=== PATIENT | female | born 1990 | race Caucasian/White ===

== ENCOUNTER → 2021-02-11 10:19 | Outpatient (BNVA) | payer SELFPAY | PROVIDERS: PCP Pediatrics | DX: Z02.1 Encounter for pre-employment examination (principal) ==

== ENCOUNTER → 2023-07-09 13:57 | Outpatient (BNVA) | payer OTHER, SELFPAY | PROVIDERS: PCP Internal Medicine Sports Medicine; Visit Provider Physician Assistant Medical | DX: Z13.89 Encounter for screening for other disorder (principal) | CPT/HCPCS: 99202 ==

== ENCOUNTER 2024-03-08 02:47 | Emergency (ER) | payer OTHER, SELFPAY ==
--- NOTE | 2024-03-08 | ECG_ITS ---
Test Reason : ABD PAIN Blood Pressure : / mmHG Vent. Rate : 122 BPM Atrial Rate : 122 BPM P-R Int : 158 ms QRS Dur : 076 ms QT Int : 308 ms P-R-T Axes : 068 046 047 degrees QTc Int : 438 ms Sinus tachycardia Abnormal ECG When compared with ECG of 03-NOV-2017 21:19, Heart rate has increased Referred By: Generic ED Physician Electronically Signed By:CULLEN BHATT
--- NOTE | ~2024-03-08 | XR_ITS ---
EXAMINATION: XR ABDOMEN KUB CLINICAL INDICATION: Constipated COMPARISON: None available. TECHNIQUE: AP view of the abdomen. FINDINGS: Bowel gas pattern is nonobstructive. Mild stool noted in the left abdomen. Limited assessment for free air with supine positioning. No suspicious calcifications are seen. Included lung bases are well aerated. No acute osseous findings are seen. XR/XR KUB IMPRESSION: Nonobstructive bowel gas pattern. Mild stool in the left abdomen. Electronically signed by: Hardy Chisholm MD 03/08/2024 06:23 AM EDT
--- NOTE | ~2024-03-08 | US_ITS ---
EXAMINATION: US ABDOMEN LIMITED CLINICAL INFORMATION: Right upper quadrant pain, question cholecystitis. COMPARISON: None available. TECHNIQUE: Real-time imaging of the right upper quadrant abdominal viscera. FINDINGS: PANCREAS: The visualized proximal portion of the pancreas is unremarkable. The distal portion is obscured secondary to overlying bowel gas. LIVER: The liver is normal in size. The liver contour is normal. Parenchymal echogenicity is normal. No focal hepatic lesion. There is no intrahepatic biliary duct dilatation seen. GALLBLADDER: Gallbladder is physiologically distended. No gallstones are seen. Gallbladder wall thickness is within normal limits at 0.3 cm. A 0.4 cm gallbladder polyp is noted. Mild right upper quadrant tenderness reported during the exam. COMMON BILE DUCT: Normal in caliber measuring 0.2 cm in diameter. RIGHT KIDNEY: No hydronephrosis. No renal calculi or focal parenchymal lesions. The kidney measures 12.3 cm in maximum dimension. FREE FLUID: None. US/US abdomen limited IMPRESSION: 1. No gallstones or wall thickening identified. Mild right upper quadrant tenderness reported during the exam, of uncertain clinical significance in this setting. 2. Gallbladder polyp measuring 0.4 cm, likely benign. This may be reassessed with six-month follow-up ultrasound. Electronically signed by: Hardy Chisholm MD 03/08/2024 06:27 AM [facility]
[2024-03-08 03:01] VITALS: BP 132/76; PULSE 138; RESP 18; TEMP 37.5; O2SAT 100; BMI 26.2
--- NOTE | 2024-03-08 03:20 | ED_ITS ---
HPI - Abdominal Pain General Chief Complaint: Abdominal Pain Stated Complaint: Abd Pain Etc Time Seen by Provider: 03/08/24 03:19 Source: patient Mode of arrival: ambulatory Limitations: no limitations History of Present Illness ED Provider: brianna COTTON narrative: Patient with off and on upper abdominal pain had ultrasound done about 6 months ago which showed sludge in the gallbladder also does have history of constipation comes here as she woke up from sleep with upper abdominal pain with nausea last bowel movement was few days ago no vomiting no fever no chills patient was having dull pain for last 24 hours which got worse in the night patient was shaky when she woke up no fever Related Data Allergies Allergy/AdvReac Type Severity Reaction Status Date / Time No Known Allergies Allergy Unverified 03/08/24 03:04 [No Known Allergies*] Review of Systems Review of Systems Yes all other systems are reviewed and are negative PMFSH Past Medical History Attestation statement: The following information was validated with the patient. Social History Social History Smoked in Last 30 Days: No Use of substances other than those prescribed or required for medical reasons: No Advance Directives: No Advance Directives Information Provided: Yes Do you have a plan to hurt others: No Plan Patient : No Physical Exam ED Vital Signs: Vital Signs - 24 hr 03/08/24 03:01 Temperature 99.5 F Pulse Rate 138 H Respiratory Rate 18 Blood Pressure 132/76 Pulse Oximetry 100 Oxygen Delivery Method Room Air BMI result Body Mass Index 26.2 Appearance: Alert. Oriented X3. No acute distress. Eyes: PERRLA, No Nystagmus no pallor ENT: Pharynx normal. Oral Mucosa moist Neck: Normal inspection. Neck supple. CVS: Normal heart rate and rhythm. Pulses normal. Respiratory: No respiratory distress. Equal air entry bilateral, no wheezing/rales/rhonchi Abdomen: Soft and tenderness in right upper quadrant no rebound or guarding Bowel sounds are present, no mass palpable, no CVA tenderness Skin: Skin warm and dry. Normal skin color. Normal skin turgor. Extremities: No lower extremity edema. No calf tenderness Neuro: Oriented X 3. No motor deficit. Medical Decision Making Medical Decision Making [facility] Narrative: Patient has small polyp in gallbladder without any cholecystitis finding of gallstones does have constipation labs are stable patient advised to follow with hospitality coordinator Differential Diagnosis Differential Diagnoses: The differential diagnosis associated with the presentation includes Biliary colic/UTI/gallstones/constipation Lab Data MDM Lab Attestation statement: I reviewed the patient's lab results. 03/08/24 03:24 03/08/24 03:24 Labs: Lab Results 03/08/24 03/08/24 Range/Units 03:24 04:48 WBC 7.3 (4.8-10.8) X10*3/uL RBC 4.67 (4.20-5.50) X10*6/uL Hgb 14.9 (12.0-16.0) g/dl Hct 40.3 (37.0-47.0) % MCV 86.3 (80.0-98.0) fL MCH 31.9 (27.0-33.0) pg MCHC 37.0 H (31.0-35.0) g/dl RDW 11.6 (11.0-16.0) % Plt Count 244 (160-400) X10*3/uL MPV 9.1 L (9.4-12.3) fL Absolute Nucleated RBC 0.000 (0.0-0.012) X10*3/uL Nucleated RBC % (auto) 0.0 (0.0-0.2) /100WBC Sodium 139 (135-145) mmol/L Potassium 3.9 (3.3-5.1) mmol/L Chloride 106 (96-108) mmol/L Carbon Dioxide 22 (22-29) mmol/L Anion Gap 15 (12-20) BUN 8 L (9-16) mg/dL Creatinine 0.84 (0.5-1.4) mg/dL Estim Creat Clear Calc 85.9 Estimated GFR > 60 Random Glucose 100 (60-115) mg/dL Calcium 10.1 (8.4-10.2) mg/dL Total Bilirubin 0.8 (0.0-1.0) mg/dL AST 53 H (5-31) U/L ALT 21 (0-31) U/L Alkaline Phosphatase 60 (39-117) U/L Total Protein 7.9 (6.5-8.0) g/dL Albumin 4.8 (3.5-5.0) g/dL Lipase 65 (8-78) U/L Urine Color Dark Yellow Urine Appearance Clear Urine pH 8.0 (5.0-9.0) Ur Specific [place] 1.010 (1.005-1.025) Urine Protein Negative (Neg-Trace) mg/dL Urine Glucose (UA) Negative (Negative) mg/dL Urine Ketones Trace (Negative) mg/dL Urine Blood Negative (Negative) Urine Nitrite Negative (Negative) Ur Leukocyte Esterase Negative (Negative) Independent Interpretation I performed an independent interpretation of an: Ultrasound Radiology Impression Discussion of test interpretation with radiology: I have reviewed the radiologist's reading. Medications Administered Discontinued Medications Generic Name Dose Route Start Last Admin Trade Name Freq PRN Reason Stop Dose Admin Acetaminophen 650 mg 03/08/24 04:19 03/08/24 04:22 Acetaminophen 325 Mg Tablet PO 03/08/24 04:20 650 mg ONCE ONE Administration Sodium Chloride 1,000 mls @ 999 mls/hr 03/08/24 03:32 03/08/24 04:13 Ns IV 03/08/24 04:32 999 mls/hr .Q1H1M ONE Administration Ondansetron HCl 4 mg 03/08/24 03:32 03/08/24 04:14 Ondansetron Hcl 4 Mg/2 Ml Vial IVPUSH 03/08/24 03:33 Not Given ONCE ONE Discharge Plan Discharge Clinical Impression: Biliary colic, Constipation Patient Disposition: Home, Self-Care Instructions: Constipation (ED), Biliary Colic (ED) Additional Instructions: Your small polyp in your gallbladder which causing the pain avoid fried foods Drink plenty of fluids take MiraLax once or twice a day for constipation Follow with surgeon Report to the ER if worsening of the pain Referrals: Ralph Austin MD [Physician] - 2 weeks Print Language: Nauruan
[2024-03-08 03:28] LABS: Hematocrit 40.3 % (37.0-47.0); Hemoglobin 14.9 g/dl (12.0-16.0); Mean Corpuscular Hemoglobin 31.9 pg (27.0-33.0); Mean Corpuscular Volume 86.3 fL (80.0-98.0); Mean Platelet Volume 9.1 fL (9.4-12.3); Platelet Count 244 X10*3/uL (160-400); Red Blood Count 4.67 X10*6/uL (4.20-5.50); Red Cell Distribution Width 11.6 % (11.0-16.0); White Blood Count 7.3 X10*3/uL (4.8-10.8)
[2024-03-08 03:45] LABS: Alanine Aminotransferase 21 U/L (0-31); Albumin Level 4.8 g/dL (3.5-5.0); Alkaline Phosphatase 60 U/L (39-117); Anion Gap 15 (12-20); Aspartate Amino Transferase 53 U/L (5-31); Bilirubin Total 0.8 mg/dL (0.0-1.0); Blood Urea Nitrogen 8 mg/dL (9-16); Calcium 10.1 mg/dL (8.4-10.2); Carbon Dioxide 22 mmol/L (22-29); Chloride 106 mmol/L (96-108); Creatinine Clr Calc Pharmacy 85.9; Estimated Glomerular Filt Rate > 60; Glucose Random 100 mg/dL (60-115); Lipase 65 U/L (8-78); Potassium 3.9 mmol/L (3.3-5.1); Sodium 139 mmol/L (135-145); Total Protein 7.9 g/dL (6.5-8.0)
[2024-03-08] MEDS: 0.9 % Sodium Chloride 1,000 ML 999 ML IV (04:13)
[2024-03-08] MEDS: Acetaminophen 325 MG TABLET 650 MG PO (04:22)
--- OUTSIDE RECORDS SUMMARY | 2024-03-08 04:35 | XMS_ITS | Continuity of Care Document ---
Author Organization [facility] Address [address] [place] [address]- Care Team Providers Care Induction Coordination Engineer Name Role Phone Treasure OLIVO, Charly Sánchez Primary Care Physician [facility] 02[facility]18[facility]23 - 03/20/23 [facility] [address] [place], [place] [address] Allergies, Adverse Reactions, Alerts No Known Allergies Immunizations Given and Recorded Vaccine Date Status Refusal Reason influenza virus vaccine, inactivated 04/03/21 Sunny rded influenza virus vaccine, inactivated 1 04/07/18 Gi jessica influenza virus vaccine, inactivated 04/21/14 Give n SARS-CoV-2 (COVID-19) mRNA BNT-162b2 vac 02/15/21 Recorded SARS-CoV-2 (COVID-19) mRNA BNT-162b2 vac 01/23/21 Recorded hepatitis B adult vaccine 02/29/20 Recorded Varicella Virus Vaccine 2 07/18/19 Recorded Varicella Virus Vaccine 11/08/10 Given Measles/Mumps/Rubella Virus Vaccine 01/16/13 Given Measles/Mumps/Rubella Virus Vaccine 03/01/97 Given Measles/Mumps/Rubella Virus Vaccine 08/28/93 Given tetanus/diphtheria/pertussis, acel(Tdap) 3 11/24/12 Given tetanus/diphtheria/pertussis, acel(Tdap) 01/20/08 Given Human Papillomavirus Vaccine 11/04/07 Given Human Papillomavirus Vaccine 05/04/07 Given Human Papillomavirus Vaccine 01/11/07 Given Meningococcal Conjugate Vaccine 01/11/07 Given tetanus-diphtheria toxoids (Td) 07/08/04 Given Polio Vaccine, Live (oldterm) 4 07/11/98 Given Polio Vaccine, Live (oldterm) 5 11/27/93 Given Polio Vaccine, Live (oldterm) 6 92 Given Polio Vaccine, Live (oldterm) 7 92 Given diphtheria/tetanus/pertussis, acel(DTaP) 07/11/98 Given diphtheria/tetanus/pertussis, acel(DTaP) 11/27/93 Given diphtheria/tetanus/pertussis, acel(DTaP) 02/06/93 Given diphtheria/tetanus/pertussis, acel(DTaP) 92 Given diphtheria/tetanus/pertussis, acel(DTaP) 92 Given Haemophilus B conjugate (HbOC) vaccine 08/28/93 Gi jessica Haemophilus B conjugate (HbOC) vaccine 02/06/93 Gi jessica Haemophilus B conjugate (HbOC) vaccine 92 Gi jessica Haemophilus B conjugate (HbOC) vaccine 92 Gi jessica hepatitis B pediatric vaccine 92 Given hepatitis B pediatric vaccine 92 Given hepatitis B pediatric vaccine 92 Given 1Result Comment: [04/07/2018] [facility] [id number] 2Result Comment: received at [place], [place] 3Admin Note: 07/29/11 VIS Given. 4Admin Note: POLIO (ORAL ) 5Admin Note: POLIO (ORAL ) 6Admin Note: POLIO (ORAL ) 7Admin Note: POLIO (ORAL ) Medications LORazepam 0.5 mg oral tablet 1 tablet = 0.5 mg, By Mouth, Daily, PRN as needed for anxiety, at least 30 minutes prior to flight,# 6 tablet, 0 Refills, Soft Stop, 02/10/22 12:03:00 EDT, Tablet, [facility]/pharmacy #[id number], Partial fill upon patient request if the prescription is for a mick... Start Date: 02/10/22 Status: Ordered Multi Vitamin+ 0 Refills, Maintenance, 02/13/23 10:44:00 EDT, Partial fill upon patient request if the prescription is for a schedule II opioid drug. Start Date: 02/13/23 Status: Ordered Probiotic Formula By Mouth, Daily, 0 Refills, Maintenance, 02/13/23 10:45:00 EDT, Partial fill upon patient request if the prescription is for a schedule II opioid drug. Start Date: 02/13/23 Status: Ordered Problem List Condition Confirmation Course Effective Dates Status H ealth Status Informant Abdominal bloating Confirmed Active Overweight (BMI 25.0-29.9) Confirmed Active Congenital pulmonary stenosis Confirmed Active Fear of flying Confirmed Active LFT elevation Confirmed Active Congenital pulmonary stenosis s/p percutaneous balloon valvuloplasty at age 7 yo Confirmed Stable 12/14/97 Active Social History Social History Type Response Smoking Status Never smoker; Tobacc o user in household: No entered on: 11/24/16 Sex Patient Care team information Care Team Personnel Name: Treasure OLIVO, Charly Sánchez Position: [facility] Physician - Primary Care Member Role: PCP Address: Address: [address] [place] [address] Adult & [place] [address]- Care Team Related Persons Name: NILESH YUN Address: home [address] [place] [address] Name: SAE YUN Address: home [address] [place] [id number]
--- OUTSIDE RECORDS SUMMARY | 2024-03-08 04:35 | XMS_ITS | Continuity of Care Document ---
Author Organization [facility] Address [address] [place] [address]- Care Team Providers Care Insurance Manager Name Role Phone Jerson OLIVO, Lucia Primary Care Physician [facility]): 01/11/21 - 01/18/21 [facility] [address] [place], [place] [address] Attending Physician: Lucia Arthur MD Allergies, Adverse Reactions, Alerts Substance Reaction Severity Status NKA Active Immunizations Given and Recorded Vaccine Date Status Refusal Reason Varicella Virus Vaccine 1 07/18/19 Recorded Varicella Virus Vaccine 11/08/10 Given influenza virus vaccine, inactivated 2 04/07/18 Gi jessica influenza virus vaccine, inactivated 04/21/14 Give n Measles/Mumps/Rubella Virus Vaccine 01/16/13 Given Measles/Mumps/Rubella Virus [...] B pediatric vaccine 92 Given 1Result Comment: received at [place], [place] 2Result Comment: [04/07/2018] [facility] [id number] 3Admin Note: 07/29/11 VIS Given. 4Admin Note: POLIO (ORAL ) 5Admin Note: POLIO (ORAL ) 6Admin Note: POLIO (ORAL ) 7Admin Note: POLIO (ORAL ) Medications Valtrex 1 gm oral tablet 1 tablet = 1 Gm, By Mouth, Daily, PRN rash, for 5 days, Take at first sign of symptoms. Drink plenty of fluids while on this medication., # 5 tablet, 3 Refills, Acute 01/31/21 9:36:00 EDT, 01/11/21 9:36:00 EDT, Tablet, [id number], Partial fill... Start Date: 01/11/21 Stop Date: 01/31/21 Status: Ordered Problem List Condition Effective Dates Status Health Status Inform ant Depression/Anxiety(Confirmed) Active Congenital pulmonary stenosi s s/p percutaneous balloon valvuloplasty at age 7 yo(Confirmed)(Stable) 12/14/97 Active Vital Signs Most recent to oldest [Reference Range]: 1 Height 159 cm (01/11/21 9:05 AM) Weight 62.2 kg (01/11/21 9:05 AM) Oxygen Saturation [94-100 %] 99 % (01/11/21 9:05 AM) Pulse Rate [55-90 bpm] 79 bpm (01/11/21 9:05 AM) Body Mass Index [18.5-24.99] 24.6 (01/11/21 9:05 AM) Blood Pressure [90-138/55-84 mm Hg] 110/ 76mm Hg (01/11/21 9:05 AM) Temperature [96.8-100.4 DegF] 98.0 DegF (01/11/21 9:05 AM) Temperature Route Temporal (01/11/21 9:05 AM) Social History Social History Type Response Smoking Status Never smoker; Tobacc o user in household: No entered on: 11/24/16 Sex
--- OUTSIDE RECORDS SUMMARY | 2024-03-08 04:35 | XMS_ITS | Continuity of Care Document ---
Author Organization [facility] Address [address] [place] [address]- Care Team Providers Care Cigarette Machine Operator Name Role Phone Charly Amanda MD Primary Care Physician [facility] 06[facility]27/22 - 07/27/22 [facility] [address] [place], [place] [address] Attending Physician: Mohan Gonzáles Admitting Physician: AdmtrMohan Referring Physician: Admtr, Ar8 Allergies, Adverse Reactions, Alerts No Known Allergies [...] pediatric vaccine 92 Given 1Result Comment: [04/07/2018] [facility] [id number] 2Result Comment: received at [place], [place] 3Admin Note: 07/29/11 VIS Given. 4Admin Note: POLIO (ORAL ) 5Admin Note: POLIO (ORAL ) 6Admin Note: POLIO (ORAL ) 7Admin Note: POLIO (ORAL ) Medications LORazepam 0.5 mg oral tablet 1 tablet = 0.5 mg, By Mouth, Daily, PRN as needed for anxiety, at least 30 minutes prior to flight,# 6 tablet, 0 Refills, Soft Stop, 02/10/22 12:03:00 EDT, Tablet, [facility]/pharmacy #[id number], Partial fill upon patient request if the prescription is for a mick... Start Date: 02/10/22 Status: Ordered Problem List Condition Confirmation Course Effective Dates Status H ealth Status Informant Congenital pulmonary stenosis Confirmed Active Fear of flying Confirmed Active LFT elevation Confirmed Active Congenital pulmonary stenosis s/p percutaneous balloon valvuloplasty at age 7 yo Confirmed Stable 12/14/97 Active Social History Social History Type Response Smoking Status Never smoker; Tobacc o user in household: No entered on: 5/22/17 Sex Note * Event Display: Laboratory Result Scanned Authored Date: * Event Display: Non BH Lab Results Authored Date: * Event Display: Non BH Lab Results Authored Date: * Event Display: Non BH Cardiovascular Results Authored Date: * Event Display: Non BH Cardiovascular Results Authored Date: Cardiology Consult note * Event Display: Consult Note Cardiology Authored Date: * Event Display: Consult Note Cardiology Authored Date: * Event Display: Consult Note Cardiology Authored Date: Patient Care team information Care Team Personnel Name: Treasure OLIVO, Charly Sánchez Position: S Primary Care Physician Member Role: PCP Address: Address: [address] [place] [address] Adult [place] [address]- Care Team Related Persons Name: NILESH YUN Address: home [address] [place] [address] Name: SAE YUN Address: [address] [place] [address]
--- OUTSIDE RECORDS SUMMARY | 2024-03-08 04:35 | XMS_ITS | Continuity of Care Document ---
Author Organization [facility] Address [address] [place] [address]- Care Team Providers Care Poker Machine Attendant Name Role Phone Charly Amanda MD Primary Care Physician [facility] Date(s): 06/27/22 - 07/27/22 [facility] [address] [place], [place] [address] Allergies, Adverse Reactions, Alerts No [...] 92 Given 1Result Comment: [04/07/2018] [facility] [id number] 2Result Comment: received at [place], [place] 3Admin Note: 07/29/11 VIS Given. 4Admin Note: POLIO (ORAL ) 5Admin Note: POLIO (ORAL ) 6Admin Note: POLIO (ORAL ) 7Admin Note: POLIO (ORAL ) Medications LORazepam 0.5 mg oral tablet 1 tablet = 0.5 mg, By Mouth, Daily, PRN as needed for anxiety, at least 30 minutes prior to flight,# 6 tablet, 0 Refills, Soft Stop, 02/10/22 12:03:00 EDT, Tablet, [facility]/pharmacy #[id number], Partial fill upon patient request if the [...] Care team information Care Team Personnel Name: Charly Amanda MD Position: [facility] Primary Care Physician Member Role: PCP Address: Address: [address] [place] [address] Adult [place] [address]- Care Team Related Persons Name: NILESH YUN Address: home [address] [place] [address] Name: SAE YUN Address: [address] [address]
--- OUTSIDE RECORDS SUMMARY | 2024-03-08 04:35 | XMS_ITS | Continuity of Care Document ---
Author Organization [facility] Address [address] [place] [address]- Care Team Providers Care Specimen Boss Name Role Phone Jerson OLIVO, Lucia Primary Care Physician [facility] Date(s): 12/24/20 - 01/23/21 [facility] [address] [place], [place] [address] Allergies, Adverse Reactions, Alerts Substance Reaction Severity [...] vaccine 92 Given 1Result Comment: received at [place], [place] 2Result Comment: [04/07/2018] [facility][note 2] [id number] 3Admin Note: 07/29/11 VIS Given. 4Admin Note: [...] 9:36:00 EDT, 01/11/21 9:36:00 EDT, Tablet, [id number], [facility] fill... Start Date: 01/11/21 Stop Date: 01/31/21 Status: Ordered Problem List Condition Effective Dates Status Health Status Inform ant Depression/Anxiety(Confirmed) Active Congenital pulmonary stenosi s s/p percutaneous balloon valvuloplasty at age 7 yo(Confirmed)(Stable) 12/14/97 Active Social History Social History Type Response Smoking Status Never smoker; Tobacc o user in household: No entered on: 11/24/16 Sex
--- OUTSIDE RECORDS SUMMARY | 2024-03-08 04:35 | XMS_ITS | Continuity of Care Document ---
Author Organization [facility] Address [address] [place] [address]- Care Team Providers Care Cook Pressure Name Role Phone Lucia Arthur MD Primary Care Physician Encounter [facility] Date(s): 07/10/20 - 07/17/20 [facility] [address] [place], [place] [address] Attending Physician: Lucia Arthur MD Allergies, Adverse [...] vaccine 92 Given 1Result Comment: received at [place], [place] 2Result Comment: [04/07/2018] [facility] [id number] 3Admin Note: 07/29/11 VIS Given. 4Admin Note: POLIO (ORAL ) 5Admin Note: POLIO (ORAL ) 6Admin Note: POLIO (ORAL ) 7Admin Note: POLIO (ORAL ) Problem List Condition Effective Dates Status Health Status Inform ant Congenital pulmonary stenosi s s/p percutaneous balloon valvuloplasty at age 7 yo(Confirmed)(Stable) 12/14/97 Active Social History Social History Type Response Smoking Status Never smoker; Tobacc o user in household: No entered on: 11/24/16 Sex
--- OUTSIDE RECORDS SUMMARY | 2024-03-08 04:35 | XMS_ITS | Continuity of Care Document ---
Author Organization [facility] Address [address] [place] [address]- Care Team Providers Care Assistant Chief Of Police Name Role Phone Treasure OLIVO, Charly Sánchez Primary Care Physician [phone] Encounter [facility] [id number] Date(s): 06/27/22 - 07/04/22 [facility] [address] [place], [place] [address] Encounter Diagnosis Unspecified acute conjunctivitis, right eye(Discharge Diagnosis) - 06/27/22 Attending Physician: Mitch OLIVO, [facility] Allergies, Adverse Reactions, Alerts No Known Allergies [...] pediatric vaccine 92 Given 1Result Comment: [04/07/2018] [facility] [id number] 2Result Comment: received at [place], [place] 3Admin Note: 07/29/11 VIS Given. 4Admin Note: POLIO (ORAL ) 5Admin Note: POLIO (ORAL ) 6Admin Note: POLIO (ORAL ) 7Admin Note: POLIO (ORAL ) Medications erythromycin 0.5% ophthalmic ointment 0.5 inches, Eye, Right, 4 times a day, for 10 days, avoid contacts and eye makeup during treatment,# 3.5 Gm, 0 Refills, Acute 07/07/22 11:31:00 EST, 06/27/22 11:31:00 EST, Ophth Ointment, [facility]/pharmacy #[id number], Partial fill upon patient request if the p... Start Date: 06/27/22 Stop Date: 07/07/22 Status: Ordered LORazepam 0.5 mg oral tablet 1 tablet = 0.5 mg, By Mouth, Daily, PRN as needed for anxiety, at least 30 minutes prior to flight,# 6 tablet, 0 Refills, Soft Stop, 02/10/22 12:03:00 EDT, Tablet, [id number], Partial fill upon patient request if the prescription is for a mick... Start Date: 02/10/22 Status: Ordered Problem List Condition Confirmation Course Effective Dates Status H ealth Status Informant Congenital pulmonary stenosis Confirmed Active Fear of flying Confirmed Active LFT elevation Confirmed Active Congenital pulmonary stenosis s/p percutaneous balloon valvuloplasty at age 7 yo Confirmed Stable 12/14/97 Active Diagnosis Diagnosis Type Effective Dates Health Status Clinical Service Informant Unspecified acute conjunctivitis, right eye Discharge Diagnosis 06/27/22 Social History Social History Type Response Smoking Status Never smoker; Tobacc o user in household: No entered on: 11/24/16 Sex Patient Care team information Care Team Personnel Name: Charly Amanda MD Position: S Primary Care Physician Member Role: PCP Address: Address: [address] [place] [address] Adult & [place] [address]- Care Team Related Persons Name: NILESH YUN Address: home [address] [place] [id number] Name: SAE YUN Address[address] [address]
--- OUTSIDE RECORDS SUMMARY | 2024-03-08 04:35 | XMS_ITS | Continuity of Care Document ---
Author Organization [facility] Address [address] [place] [address]- Care Team Providers Care Shoe Salesperson Name Role Phone Charly Amanda MD Primary Care Physician [facility] - 02/20/23 [facility] [address] [place], [place] [address] Encounter Diagnosis Congenital pulmonary stenosis(Discharge Diagnosis) - 02/13/23 LFT elevation(Discharge Diagnosis) - 02/13/23 Overweight (BMI 25.0-29.9)(Discharge Diagnosis) - 02/13/23 Abdominal bloating(Discharge Diagnosis) - 02/13/23 Attending Physician: Charly Amanda MD Allergies, Adverse Reactions, Alerts No Known Allergies [...] pediatric vaccine 92 Given 1Result Comment: [04/07/2018] [facility] [id number] 2Result Comment: received at [place], [place] 3Admin Note: 07/29/11 VIS Given. 4Admin Note: POLIO (ORAL ) 5Admin Note: POLIO (ORAL ) 6Admin Note: POLIO (ORAL ) 7Admin Note: POLIO (ORAL ) Medications LORazepam 0.5 mg oral tablet 1 tablet = 0.5 mg, By Mouth, Daily, PRN as needed for anxiety, at least 30 minutes prior to flight,# 6 tablet, 0 Refills, Soft Stop, 02/10/22 12:03:00 EDT, Tablet, [id number], Partial fill upon patient request if the [...] Effective Dates Health Status Clinical Service Informant Congenital pulmonary stenosis Discharge Diagnosis 02/13/23 LFT elevation Discharge Diagnosis 02/13/23 Overweight (BMI 25.0-29.9) Discharge Diagnosis 02/13/23 Abdominal bloating Discharge Diagnosis 02/13/23 Vital Signs Most recent to oldest [Reference Range]: 1 Height 158.5 cm (02/13/23 10:40 AM) Weight 66.8 kg (02/13/23 10:40 AM) Oxygen Saturation [94-100 %] 97 % (02/13/23 10:40 AM) Pulse Rate [55-90 bpm] 94 bpm *H* (02/13/23 10:40 AM) Body Mass Index [18.5-24.99 kg/m2] 26.59 kg/m2 *H* (02/13/23 10:40 AM) Blood Pressure [90-138/55-84 mm Hg] 104/ 73mm Hg (02/13/23 10:40 AM) Temperature [96.8-100.4 DegF] 97.3 DegF (02/13/23 10:40 AM) Mode of Delivery (Oxygen) Room air (02/13/23 10:40 AM) Blood pressure sites Arm, right (02/13/23 10:40 AM) Temperature Route Oral (02/13/23 10:40 AM) Weight Obtained Via Standing scale (02/13/23 10:40 AM) Social History Social History Type Response Smoking Status Never smoker; Tobacc o user in household: No entered on: 11/24/16 Sex Note * Shelly Ivy: PERFORM, SIGN, VERIFY Event Display: Patient Education/Instruction Authored Date: [id number] [facility] Clinical Summary Name MYRIAM ALVARENGA Age 32 Years 1990 PCP Treasure OLIVO, Charly Sánchez PCP [facility]# [phone] Visit Date 02/13/2023 10:37:00 Additional Instructions: Scheduled Appointments?? Future Appointments ?No Future Appointments Scheduled Follow-Up Instructions ?? Diagnosis Encounter for general adult medical examination without abnormal findings Medications: Please continue your medications until treatment is completed or stopped by your provider. Discuss any questions related to medications with your provider. Medications to Continue with No Changes These medications were not printed or sent to your pharmacy bifidobacterium-lactobacillus (Probiotic Formula) Oral Daily. Next Dose: Lorazepam (LORazepam 0.5 mg oral tablet) 1 tab(s) Oral Daily as needed as needed for anxiety. at least 30 minutes prior to flight. Refills: 0. Next Dose: Multivitamin (Multi Vitamin+) Next Dose: Allergy Info:?? NKA Medications Given This Visit Future Orders ?No future orders Vital Signs Height 158.5 cm Weight 66.8 kg BMI 26.59 kg/m2 Blood Pressure 104 mm Hg/73 mm Hg Temperature 97.3 DegF Pulse Rate 94 bpm Respiratory Rate 02 Sat Mode of Delivery 97 %/Room air You can now view a summary of your hospital visit from the comfort of your home through a free online portal called [email or web address]. [email or web address] is a website that allows you to securely view your medical information including discharge summary, medications and follow-up visits. ??You can alsosend a secure electronic message to your doctor???s office to request appointments, renew medications or just ask a question. You can enroll at [email or web address] or register during your next office visit. Disclaimer:?? The information provided is of a general nature and is intended to be used in conjunction with the recommendations and advice of your health care practitioner. ??Every effort has been made to ensure that the information provided is accurate and complete at the time it is provided to you however, as your needs change, or, as new ??information becomes available, different or additional instructions may be required. If you have questions, please consult with your primary care provider or pharmacist, as appropriate. ??This information is not intended to serve as substitution for assessment and evaluation by a qualified health care provider. If you do not have a primary care provider, you may find a [facility] provider by calling [facility] [employer] [facility] at [phone]. For information about the plan of care including goals and instructions for your diagnosis, please see the patient education orders section of this document. Patient Education Materials?? The content of this educational material or handout may have been modified, supplemented, or adapted from its original content and format to support your individualized medical care. 4 Steps for Eating Healthier Changing the way you eat can improve your health. It can lower your cholesterol and blood pressure,and help you stay at a healthy weight. Your diet doesn???t have to be bland and boring to be healthy. Just watch your calories and follow these steps: 1. Eat fewer unhealthy fats ??? Choose more fish and lean meats instead of fatty cuts of meat. ??? Skip butter and lard, and use less margarine. ??? Pass on foods that have palm, coconut, or hydrogenated oils. ??? Eat fewer high-fat dairy foods like cheese, ice cream, and whole milk. ??? Get a heart-healthy cookbook and try some low-fat recipes. 2.??Go light on salt ??? Keep the saltshaker off the table. ??? Limit high-salt ingredients, such as soy sauce, bouillon, and garlic salt. ??? Instead of adding salt when cooking, season your food with herbs and flavorings. Try lemon, garlic, and onion. ??? Limit convenience foods, such as boxed or canned foods and restaurant food. ??? Read food labels and choose lower-sodium options. 3. Limit sugar ??? Pause before you add sugars to pancakes, cereal, coffee, or tea. This includes white and brown table sugar, syrup, honey, and molasses. Cut your usual amount by half. ??? Use non-sugar sweeteners. Stevia, aspartame, and sucralose can satisfy a sweet tooth without adding calories. ??? Swap out sugar-filled soda and other drinks. Buy sugar-free or low-calorie beverages. Remember water is always the best choice. ??? Read labels and choose foods with less added sugar. Keep in mind that dairy foods and foods with fruit will have some natural sugar. ??? Cut the sugar in recipes by 1/3 to 1/2. Boost the flavor with extracts like almond, vanilla, ororange. Or add spices such as cinnamon or nutmeg. 4. Eat??more fiber ??? Eat fresh fruits and vegetables every day. ??? Boost your diet with whole grains. Go for oats, whole-grain rice, and bran. ??? Add beans and lentils to your meals. ??? Drink more water to match your fiber increase. This is to help prevent constipation. ?? 2886-7223 [employer]. [address] [place] [address]. All rights reserved. This information is not intended as a substitute for professional medical care. Always follow your healthcare professional's instructions. Prevention Guidelines,??Women Ages 18 to 39 Screening tests and vaccines are an important part of managing your health. Health counseling is essential, too. Below are guidelines for these, for women ages 18 to 39. Talk with your healthcare provider to make sure you???re up-to-date on what you need. Screening Who needs it How often Alcohol misuse All women in this age group At routine exams Blood pressure All women in this age group Every 2 years if your blood pressure is less than 120/80 mm Hg; yearly if your systolic blood pressure is 120 to 139 mm Hg, or your diastolic blood pressure reading is 80 to 89 mm Hg Breast cancer All women in this age group should talk with their healthcare providers about the need for clinicalbreast exams (CBE)1 Clinical breast exam every 3 years1 Cervical cancer Women ages 21 and older Women between ages 21 and 29 should have a Pap test every 3 years; women between ages 30 and 65 areadvised to have a Pap test plus an HPV test every 5 years Chlamydia Sexually active women ages 24 and younger, and women at increased risk for infection Every 3 years if you're at risk or have symptoms Depression All women in this age group At routine exams Diabetes mellitus, type 2 Adults with no symptoms who are overweight or obese and have 1 or more other risk factors for diabetes At least every 3 years Gonorrhea Sexually active women at increased risk for infection At routine exams Hepatitis C Anyone at increased risk At routine exams HIV All women At routine exams Obesity All women in this age group At routine exams Syphilis Women at increased risk for infection ??? talk with your healthcare provider At routine exams Tuberculosis Women at increased risk for infection ??? talk with your healthcare provider Ask your healthcare provider Vision All women in this age group At least 1 complete exam in your 20s, and 2 in your 30s Vaccine2 Who needs it How often Chickenpox (varicella) All women in this age group who have no record of this infection or vaccine 2 doses; the second dose should be given 4 to 8 weeks after the first dose Hepatitis A Women at increased risk for infection ??? talk with your healthcare provider 2 doses given at least 6 months apart Hepatitis B Women at increased risk for infection ??? talk with your healthcare provider 3 doses over 6 months; second dose should be given 1 month after the first dose; the third dose should be given at least 2 months after the second dose and at least 4 months after the first dose Haemophilus influenzae??Type B (HIB) Women at increased risk for infection ??? talk with your healthcare provider 1 to 3 doses Human papillomavirus (HPV) All women in this age group up to age 26 3 doses; the second dose should be given 1 to 2 months after the first dose and the third dose given 6 months after the first dose Influenza (flu) All women in this age group Once a year Measles, mumps, rubella (MMR) All women in this age group who have no record of these infections or vaccines 1 or 2 doses Meningococcal Women at increased risk for infection ??? talk with your healthcare provider 1 or more doses Pneumococcal conjugate vaccine (PCV13)??and pneumococcal polysaccharide??vaccine??(PPSV23) Women at increased risk for infection ??? talk with your healthcare provider PCV13: 1 dose ages 19 to 65 (protects against 13 types of pneumococcal bacteria) PPSV23: 1 to??2 doses through age 64, or 1 dose at 65 or older (protects against 23 types of pneumococcal bacteria) Tetanus/diphtheria/pertussis (Td/Tdap) booster All women in this age group Td every 10 years, or a one-time dose of Tdap instead of a Td booster after age 18, then Td every 10 years Counseling Who needs it How often BRCA gene mutation testing for breast and ovarian cancer susceptibility Women with increased risk for having gene mutation When your risk is known Breast cancer and chemoprevention Women at high risk for breast cancer When your risk is known Diet and exercise Women who are overweight or obese When diagnosed, and then at routine exams Domestic violence Women at the age in which they are able to have children At routine exams Sexually transmitted infection prevention Women who are sexually active At routine exams Skin cancer Prevention of skin cancer in fair-skinned adults through age 24 At routine exams Use of tobacco and the health effects it can cause All women in this age group Every visit 1According to the ACS, women ages 20 to 39 years should have a clinical breast exam (CBE) as part of their routine health exam every 3 years, and breast self- exams are an option for women starting intheir 20s.??However, the ??USPSTF does not recommend CBE. 2Those who are 18 years of age, who are not up-to-date on their childhood immunizations, should receive all appropriate catch-up vaccines recommended by the CDC. ?? 8043-0303 [employer]. [address] [place] [address], [place] [address]. All rights reserved. This information is not intended as a substitute for professional medical care. Always follow your healthcare professional's instructions. Patient Care team information Care Team Personnel Name: Charly Amanda MD Position: S Physician - Primary Care Member Role: PCP Address: Address: [address] [place] [address] Adult [place] [address]- Care Team Related Persons Name: NILESH YUN Address: home [address] [place] [address] Name: SAE YUN Address: home [address] [place] [address]
--- OUTSIDE RECORDS SUMMARY | 2024-03-08 04:35 | XMS_ITS | Continuity of Care Document ---
Author Organization [facility] Address [address] [place] [address]- Care Team Providers Care Power Tool Repair Technician Name Role Phone Lucia Arthur MD Primary Care Physician [facility]19 - 08/22/[address] [address]- [facility] Attending Physician: Lucia Arthur MD Allergies, Adverse [...] vaccine 92 Given 1Result Comment: received at [place], [place] 2Result Comment: [04/07/2018] [facility] [id number] 3Admin Note: 07/29/11 VIS Given. 4Admin Note: POLIO (ORAL ) 5Admin Note: POLIO (ORAL ) 6Admin Note: POLIO (ORAL ) 7Admin Note: POLIO (ORAL ) Medications Ativan 0.5 mg oral tablet See Instructions, PRN anxiety, Take 1 tablet up to 3 times daily as needed for anxiety. Ok to repeat dose after 20 min if needed., # 30 tablet, 0 Refills, Acute 04/25/20 8:00:00 EDT, 04/25/19 17:33:46 EDT Start Date: 04/25/19 Stop Date: 04/25/20 Status: Ordered copper intrauteral device 0 Refills, Maintenance, 11/24/16 11:37:10 Start Date: 11/24/16 Status: Ordered Problem List Condition Effective Dates Status Health Status Inform ant Congenital pulmonary stenosi s s/p percutaneous balloon valvuloplasty at age 7 yo(Confirmed)(Stable) 12/14/97 Active Social History Social History Type Response Smoking Status Never smoker; Tobacc o user in household: No entered on: 11/24/16 Sex
--- OUTSIDE RECORDS SUMMARY | 2024-03-08 04:35 | XMS_ITS | Continuity of Care Document ---
Author Organization [facility] Address [address] [place] [address]- Care Team Providers Care Treating Plant Supervisor Name Role Phone Lucia Arthur MD Primary Care Physician [facility](s): 02/09/20 - 03/10/20 [facility] [address] [place] [address]- [facility] Allergies, Adverse Reactions, Alerts Substance Reaction Severity [...] vaccine 92 Given 1Result Comment: received at [place], [place] 2Result Comment: [04/07/2018] [facility] [id number] 3Admin Note: 07/29/11 VIS Given. 4Admin Note: [...]
--- OUTSIDE RECORDS SUMMARY | 2024-03-08 04:35 | XMS_ITS | Continuity of Care Document ---
Author Organization [facility] Address [address] [place] [address]- Care Team Providers Care Machine Set Up Name Role Phone Treasure OLIVO, Charly Sánchez Primary Care Physician [phone] [facility](s): 02/12/22 - 03/14/22 [facility] [address] [place], [place] [address] Allergies, Adverse Reactions, Alerts No [...] pediatric vaccine 92 Given 1Result Comment: [04/07/2018] [facility] [id number] 2Result Comment: received at [place], [place] 3Admin Note: 07/29/11 VIS Given. 4Admin Note: POLIO (ORAL ) 5Admin Note: POLIO (ORAL ) 6Admin Note: POLIO (ORAL ) 7Admin Note: POLIO (ORAL ) Medications LORazepam 0.5 mg oral tablet 1 tablet = 0.5 mg, By Mouth, Daily, PRN as needed for anxiety, at least 30 minutes prior to flight,# 6 tablet, 0 Refills, Soft Stop, 02/10/22 12:03:00 EDT, Tablet, [id number], Partial fill upon patient request if the prescription is for a mick... Start Date: 02/10/22 Status: Ordered Problem List Condition Effective Dates Status Health Status Inform ant Congenital pulmonary stenosis(Confirmed) Active Fear of flying(Confirmed) Active LFT elevation(Confirmed) Active Congenital pulmonary stenosi s s/p percutaneous balloon valvuloplasty at age 7 yo(Confirmed)(Stable) 12/14/97 Active Social History Social History Type Response Smoking Status Never smoker; Tobacc o user in household: No entered on: 11/24/16 Sex Care Team Personnel Name: Charly Amanda MD Address: [address] Adult & Pediatric Medicine [place], [place] [address]
--- OUTSIDE RECORDS SUMMARY | 2024-03-08 04:35 | XMS_ITS | Continuity of Care Document ---
Author Organization [facility] Address [address] [place] [address]- Care Team Providers Care Notcher Name Role Phone Charly Amanda MD Primary Care Physician [phone] [facility] 12/15/22 - 01/14/23 [facility] [address] [place], [place] [address] Allergies, Adverse Reactions, Alerts No Known Allergies [...] pediatric vaccine 92 Given 1Result Comment: [04/07/2018] [facility] [id number] 2Result Comment: received at [place], [place] 3Admin Note: 07/29/11 VIS Given. 4Admin [...] Stop, 02/10/22 12:03:00 EDT, Tablet, [facility]/pharmacy #[id number], Partial fill upon patient request if the [...] Team Personnel Name: Charly Amanda MD Position: [facility] Physician - Primary Care Member Role: PCP Address: Address: [address] [place] [address] Adult [place] [address]- Care Team Related Persons Name: NILESH YUN Address: home [address] [place] [address] Name: SAE YUN Address: [address] [address]
--- OUTSIDE RECORDS SUMMARY | 2024-03-08 04:35 | XMS_ITS | Continuity of Care Document ---
Author Organization [facility] Address [address] [place] [address]- Care Team Providers Care Filter Tank Tender Name Role Phone Charly Amanda MD Primary Care Physician [place] [facility] Date(s): 10/16/21 - 02/13/22 [facility] [address] [place], [place] [address] Attending Physician: Charly Amanda MD Allergies, Adverse [...] vaccine 92 Given 1Result Comment: [04/07/2018] [facility] [id number] 2Result Comment: received at [place], [place] 3Admin Note: 07/29/11 VIS Given. 4Admin Note: POLIO (ORAL ) 5Admin Note: POLIO (ORAL ) 6Admin Note: POLIO (ORAL ) 7Admin Note: POLIO (ORAL ) Medications LORazepam 0.5 mg oral tablet 1 tablet = 0.5 mg, By Mouth, Daily, PRN as needed for anxiety, at least 30 minutes prior to flight,# 6 tablet, 0 Refills, Soft Stop, 02/10/22 12:03:00 EDT, Tablet, [facility]/pharmacy #[id number], Partial fill upon patient request if the [...]
--- OUTSIDE RECORDS SUMMARY | 2024-03-08 04:35 | XMS_ITS | Continuity of Care Document ---
Author Organization [facility] Address [address] [place] [address]- Care Team Providers Care Senior Analysis Specialist Name Role Phone Treasure OLIVO, Charly Sánchez Primary Care Physician [facility](s): 02/12/22 - 03/14/22 [facility] [address] [place], [place] [address] Allergies, Adverse Reactions, Alerts [...] pediatric vaccine 92 Given 1Result Comment: [04/07/2018] [facility] [id number] 2Result Comment: received at [place], [place] 3Admin Note: 07/29/11 VIS Given. 4Admin Note: POLIO (ORAL ) 5Admin Note: POLIO (ORAL ) 6Admin Note: POLIO (ORAL ) 7Admin Note: POLIO (ORAL ) Medications LORazepam 0.5 mg oral tablet 1 tablet = 0.5 mg, By Mouth, Daily, PRN as needed for anxiety, at least 30 minutes prior to flight,# 6 tablet, 0 Refills, Soft Stop, 02/10/22 12:03:00 EDT, Tablet, [id number], Partial fill upon patient request if the [...] Team Personnel Name: Charly Amanda MD Address: [address] Adult & Pediatric Medicine [place], [place] [address]
--- OUTSIDE RECORDS SUMMARY | 2024-03-08 04:35 | XMS_ITS | Continuity of Care Document ---
Author Organization [facility] Address [address] [place] [address]- Care Team Providers Care Automotive Teacher Name Role Phone Lucia Arthur MD Primary Care Physician [facility]s): 01/27/20 - 02/26/20 [facility] [address] [place] [address]- [facility] Allergies, Adverse Reactions, Alerts Substance Reaction Severity [...] vaccine 92 Given 1Result Comment: received at [place], [place] 2Result Comment: [04/07/2018] [facility] [id number] 3Admin Note: 07/29/11 VIS Given. 4Admin Note: [...]
--- OUTSIDE RECORDS SUMMARY | 2024-03-08 04:35 | XMS_ITS | Continuity of Care Document ---
Author Organization [facility] Address [address] [place] [address]- Care Team Providers Care Delinquent Tax Collection Assistant Name Role Phone Charly Amanda MD Primary Care Physician [facility]s): 08/01/22 - 08/31/22 [facility] [address] [place], [place] [address] Allergies, Adverse Reactions, [...] pediatric vaccine 92 Given 1Result Comment: [04/07/2018] [facility] [id number] 2Result Comment: received at [place], [place] 3Admin Note: 07/29/11 VIS Given. 4Admin [...] Team Personnel Name: Charly Amanda MD Position: [facility] Primary Care Physician Member Role: PCP Address: Address: [address] [place] [address] Adult & [place] [address]- Care Team Related Persons Name: NILESH YUN Address: home [address] [place] [address] Name: SAE YUN Address: [address] [address]
--- OUTSIDE RECORDS SUMMARY | 2024-03-08 04:36 | XMS_ITS | Continuity of Care Document ---
Author Organization [facility] Address [address] [place] [address]- Care Team Providers Care Instructional Aide Name Role Phone Charly Amanda MD Primary Care Physician [phone] [facility](s): 11/14/21 - 12/14/21 [facility] [address] [place], [place] [address] Allergies, Adverse Reactions, Alerts No Known [...] vaccine 92 Given 1Result Comment: received at [place], [place] 2Result Comment: [04/07/2018] [facility] [id number] 3Admin Note: 07/29/11 VIS Given. 4Admin Note: POLIO (ORAL ) 5Admin Note: POLIO (ORAL ) 6Admin Note: POLIO (ORAL ) 7Admin Note: POLIO (ORAL ) Medications LORazepam 0.5 mg oral tablet 1 tablet = 0.5 mg, By Mouth, Daily, PRN as needed for anxiety, at least 30 minutes prior to flight,# 6 tablet, 0 Refills, Soft Stop, 06/10/21 11:13:00 EST, Tablet, [facility]/pharmacy #[id number], Partial fill upon patient request if the prescription is for a mick... Start Date: 06/10/21 Status: Ordered Problem List Condition Effective Dates Status Health Status Inform ant Depression/Anxiety(Confirmed) Active Congenital pulmonary stenosi s s/p percutaneous balloon valvuloplasty at age 7 yo(Confirmed)(Stable) 12/14/97 Active Social History Social History Type Response Smoking Status Never smoker; Tobacc o user in household: No entered on: 11/24/16 Sex
--- OUTSIDE RECORDS SUMMARY | 2024-03-08 04:36 | XMS_ITS | Continuity of Care Document ---
Author Organization [facility] Address [address] [place] [address]- Care Team Providers Care Steel Checker Name Role Phone Charly Amanda MD Primary Care Physician [phone] [facility]counter [facility] Date(s): 02/10/22 - 02/17/22 [facility] [address] [place], [place] [address] Encounter Diagnosis Congenital pulmonary stenosis(Discharge Diagnosis) - 02/11/22 Fear of flying(Discharge Diagnosis) - 02/11/22 LFT elevation(Discharge Diagnosis) - 02/11/22 History of alcohol abuse(Discharge Diagnosis) - 02/11/22 Overweight (BMI 25.0-29.9)(Discharge Diagnosis) - 02/11/22 Attending Physician: Charly Amanda MD Allergies, Adverse [...] vaccine 92 Given 1Result Comment: [04/07/2018] [facility] [id number] 2Result Comment: received at [place], [place] 3Admin Note: 07/29/11 VIS Given. 4Admin Note: POLIO (ORAL ) 5Admin Note: POLIO (ORAL ) 6Admin Note: POLIO (ORAL ) 7Admin Note: POLIO (ORAL ) Medications LORazepam 0.5 mg oral tablet 1 tablet = 0.5 mg, By Mouth, Daily, PRN as needed for anxiety, at least 30 minutes prior to flight,# 6 tablet, 0 Refills, Soft Stop, 02/10/22 12:03:00 EDT, Tablet, [id number], Partial fill upon patient request if the prescription is for a mick... Start Date: 02/10/22 Status: Ordered Problem List Condition Effective Dates Status Health Status Inform ant Congenital pulmonary stenosis(Confirmed) Active Fear of flying(Confirmed) Active LFT elevation(Confirmed) Active Congenital pulmonary stenosi s s/p percutaneous balloon valvuloplasty at age 7 yo(Confirmed)(Stable) 12/14/97 Active Diagnosis Diagnosis Type Effective Dates Health Status Clinical Service Informant Congenital pulmonary stenosis Discharge Diagnosis 02/11/22 Fear of flying Discharge Diagnosis 02/11/22 LFT elevation Discharge Diagnosis 02/11/22 History of alcohol abuse Discharge Diagnosis 02/11/22 Overweight (BMI 25.0-29.9) Discharge Diagnosis 02/11/22 Vital Signs Most recent to oldest [Reference Range]: 1 2 Height 159 cm (02/10/22 12:05 PM) 159 cm (02/10/22 11:37 AM) Weight 68.3 kg (02/10/22 11:37 AM) Oxygen Saturation [94-100 %] 100 % (02/10/22 11:37 AM) Pulse Rate [55-90 bpm] 107 bpm *H* (02/10/22 11:37 AM) Body Mass Index [18.5-24.99] 27.02 *H* (02/10/22 11:37 AM) Blood Pressure [90-138/55-84 mm Hg] 116/ 64mm Hg (02/10/22 12:05 PM) 124/85mm Hg (02/10/22 11:37 AM) Temperature [96.8-100.4 DegF] 97.3 DegF (02/10/22 11:37 AM) Mode of Delivery (Oxygen) Room air (02/10/22 11:37 AM) Blood pressure sites Arm, left (02/10/22 11:37 AM) Temperature Route Temporal (02/10/22 11:37 AM) Dry Weight 68.3 kg (02/10/22 11:37 AM) Social History Social History Type Response Smoking Status Never smoker; Tobacc o user in household: No entered on: 11/24/16 Sex
--- OUTSIDE RECORDS SUMMARY | 2024-03-08 04:36 | XMS_ITS | Continuity of Care Document ---
Author Organization [facility] Address [address] [place] [address]- Care Team Providers Care Feather Washer Name Role Phone Lucia Arthur MD Primary Care Physician Encounter [place] Date(s): 07/25/20 - 08/24/20 [facility] [address] [place], [place] [address] Allergies, Adverse Reactions, Alerts Substance Reaction Severity [...] vaccine 92 Given 1Result Comment: received at [place], [place] 2Result Comment: [04/07/2018] [facility] [id number] 3Admin Note: 07/29/11 VIS Given. 4Admin Note: [...]
--- OUTSIDE RECORDS SUMMARY | 2024-03-08 04:36 | XMS_ITS | Continuity of Care Document ---
Author Organization [facility] Address [address] [place] [address]- Care Team Providers Care Sanitarian Inspector Name Role Phone Treasure OLIVO, Charly Sánchez Primary Care Physician [facility] Date(s): 02/15/23 - 03/17/23 [facility] [address] [place], [place] [address] Allergies, Adverse Reactions, Alerts No [...] pediatric vaccine 92 Given 1Result Comment: [04/07/2018] [facility] [id number] 2Result Comment: received at [place], [place] 3Admin Note: 07/29/11 VIS Given. 4Admin Note: POLIO (ORAL ) 5Admin Note: POLIO (ORAL ) 6Admin Note: POLIO (ORAL ) 7Admin Note: POLIO (ORAL ) Medications LORazepam 0.5 mg oral tablet 1 tablet = 0.5 mg, By Mouth, Daily, PRN as needed for anxiety, at least 30 minutes prior to flight,# 6 tablet, 0 Refills, Soft Stop, 02/10/22 12:03:00 EDT, Tablet, [facility]/pharmacy #[id number], Partial fill upon patient request if the [...] Personnel Name: Treasure OLIVO, Charly Sánchez Position: [facility] Physician - Primary Care Member Role: PCP Address: Address: [address] [place] [address] Adult & [place] [address]- Care Team Related Persons Name: NILESH YUN Address: home [address] [place] [address] Name: SAE YUN Address: [address] [address]
--- OUTSIDE RECORDS SUMMARY | 2024-03-08 04:36 | XMS_ITS | Continuity of Care Document ---
Author Organization [facility] Address [address] [place] [address]- Care Team Providers Care Acetylene Operator Name Role Phone Charly Amanda MD Primary Care Physician [facility]counter [facility] Date(s): 11/15/21 - 12/15/21 [facility] [address] [place], [place] [address] Allergies, Adverse Reactions, Alerts No [...] vaccine 92 Given 1Result Comment: received at [place], [place] 2Result Comment: [04/07/2018] [facility] [id number] 3Admin Note: 07/29/11 VIS Given. 4Admin Note: POLIO (ORAL ) 5Admin Note: POLIO (ORAL ) 6Admin Note: POLIO (ORAL ) 7Admin Note: POLIO (ORAL ) Medications LORazepam 0.5 mg oral tablet 1 tablet = 0.5 mg, By Mouth, Daily, PRN as needed for anxiety, at least 30 minutes prior to flight,# 6 tablet, 0 Refills, Soft Stop, 06/10/21 11:13:00 EST, Tablet, [facility]/pharmacy #[id number], Partial fill upon patient request if the [...]
--- OUTSIDE RECORDS SUMMARY | 2024-03-08 04:36 | XMS_ITS | Continuity of Care Document ---
Author Organization [facility] Address [address] [place] [address]- Care Team Providers Care Carpenter Refrigerator Name Role Phone Lucia Arthur MD Primary Care Physician [facility]counter [facility] Date(s): 02/22/20 - 03/23/20 [facility] [address] [place] [address]- [facility] Allergies, Adverse Reactions, Alerts Substance Reaction Severity [...] vaccine 92 Given 1Result Comment: received at [place], [place] 2Result Comment: [04/07/2018] [facility] [id number] 3Admin Note: 07/29/11 VIS Given. 4Admin Note: [...]
--- OUTSIDE RECORDS SUMMARY | 2024-03-08 04:36 | XMS_ITS | Continuity of Care Document ---
Author Organization [facility] Address [address] [place] [address]- Care Team Providers Care Major Account Manager Name Role Phone Charly Amanda MD Primary Care Physician [facility]counter [facility] Date(s): 05/28/21 - 06/27/21 [facility] [address] [place], [place] [address] Allergies, Adverse Reactions, Alerts Substance Reaction Severity [...] vaccine 92 Given 1Result Comment: received at [place], [place] 2Result Comment: [04/07/2018] [facility] [id number] 3Admin Note: 07/29/11 VIS Given. 4Admin Note: POLIO (ORAL ) 5Admin Note: POLIO (ORAL ) 6Admin Note: POLIO (ORAL ) 7Admin Note: POLIO (ORAL ) Medications LORazepam 0.5 mg oral tablet 1 tablet = 0.5 mg, By Mouth, Daily, PRN as needed for anxiety, at least 30 minutes prior to flight,# 6 tablet, 0 Refills, Soft Stop, 06/10/21 11:13:00 EST, Tablet, [id number], Partial fill upon patient request if the [...]
--- OUTSIDE RECORDS SUMMARY | 2024-03-08 04:36 | XMS_ITS | Continuity of Care Document ---
Author Organization [facility] Address [address] [place] [address]- Care Team Providers Care Water Pollution Specialist Name Role Phone Treasure OLIVO, Charly Sánchez Primary Care Physician [facility]counter [facility] Date(s): 02/17/22 - 03/19/22 [facility] [address] [place], [place] [address] Allergies, Adverse Reactions, Alerts No Known [...] Given 1Result Comment: [04/07/2018] [facility] [id number] 2Result Comment: received at [place], [place] 3Admin Note: 07/29/11 VIS Given. 4Admin Note: POLIO (ORAL ) 5Admin Note: POLIO (ORAL ) 6Admin Note: POLIO (ORAL ) 7Admin Note: POLIO (ORAL ) Medications LORazepam 0.5 mg oral tablet 1 tablet = 0.5 mg, By Mouth, Daily, PRN as needed for anxiety, at least 30 minutes prior to flight,# 6 tablet, 0 Refills, Soft Stop, 02/10/22 12:03:00 EDT, Tablet, [id number], Partial fill upon patient request if the [...] Team Personnel Name: Charly Amanda MD Address: [address] Medicine [place], [place] [address]
--- OUTSIDE RECORDS SUMMARY | 2024-03-08 04:36 | XMS_ITS | Continuity of Care Document ---
Author Organization [facility] Address [address] [place] [address]- Care Team Providers Care Gas Well Pumper Name Role Phone Treasure OLIVO, Charly Sánchez Primary Care Physician [phone] [facility] Date(s): 10/12/23 - 11/11/23 [facility] [address] [place], [place] [address] Allergies, Adverse Reactions, Alerts No Known [...] pediatric vaccine 92 Given 1Result Comment: [04/07/2018] [facility] [id number] 2Result Comment: received at [place], [place] 3Admin Note: 07/29/11 VIS Given. 4Admin Note: POLIO (ORAL ) 5Admin Note: POLIO (ORAL ) 6Admin Note: POLIO (ORAL ) 7Admin Note: POLIO (ORAL ) Medications LORazepam 0.5 mg oral tablet 1 tablet = 0.5 mg, By Mouth, Daily, PRN as needed for anxiety, at least 30 minutes prior to flight,# 6 tablet, 0 Refills, Soft Stop, 10/13/23 19:29:00 EDT, Tablet, [facility]/pharmacy #[id number], Partial fill upon patient request if the prescription is for a mick... Start Date: 10/13/23 Status: Ordered Multi Vitamin+ 0 Refills, Maintenance, [...] Personnel Name: Treasure OLIVO, Charly Sánchez Position: [facility] Physician - Primary Care Member Role: PCP Address: Address: [address] [place] [address] Adult [place] [address]- Care Team Related Persons Name: NILESH YUN Address: home [address] [place] [id number] Name: SAE YUN Address: home [address] [place] [address]
--- OUTSIDE RECORDS SUMMARY | 2024-03-08 04:36 | XMS_ITS | Continuity of Care Document ---
Author Organization [facility] Address [address] [place] [address]- Care Team Providers Care Career Professional Name Role Phone Charly Amanda MD Primary Care Physician Encounter [facility] Date(s): 02/15/24 - 02/22/24 [facility] [address] [place], [place] [address] Encounter Diagnosis LFT elevation(Discharge Diagnosis) - 02/15/24 Overweight (BMI 25.0-29.9)(Discharge Diagnosis) - 02/15/24 Congenital pulmonary stenosis(Discharge Diagnosis) - 02/15/24 PVCs (premature ventricular contractions)(Discharge Diagnosis) - 02/15/24 Attending Physician: Charly Amanda MD Allergies, Adverse Reactions, Alerts No Known Allergies Immunizations Given and Recorded Vaccine Date Status Refusal Reason Measles/Mumps/Rubella Virus Vaccine 12/02/22 Recor ded Measles/Mumps/Rubella Virus Vaccine 07/25/19 Recor ded Measles/Mumps/Rubella Virus Vaccine 01/16/13 Given Measles/Mumps/Rubella Virus Vaccine 03/01/97 Given Measles/Mumps/Rubella Virus Vaccine 08/28/93 Given influenza virus vaccine, inactivated 04/03/21 Sunny rded influenza virus vaccine, inactivated 1 04/07/18 Gi jessica influenza virus vaccine, inactivated 04/21/14 Give n SARS-CoV-2 (COVID-19) mRNA BNT-162b2 vac 02/15/21 Recorded SARS-CoV-2 (COVID-19) mRNA BNT-162b2 vac 01/23/21 Recorded hepatitis B adult vaccine 02/29/20 Recorded hepatitis B adult vaccine 09/26/19 Recorded hepatitis B adult vaccine 07/25/19 Recorded Varicella Virus Vaccine 2 07/18/19 Recorded Varicella Virus Vaccine 11/08/10 Given tetanus/diphtheria/pertussis, acel(Tdap) 3 11/24/12 Given tetanus/diphtheria/pertussis, [...] vaccine 92 Given 1Result Comment: [04/07/2018] [facility] [id number] 2Result Comment: received at [place], [place] 3Admin Note: 07/29/11 VIS Given. 4Admin Note: POLIO (ORAL ) 5Admin Note: POLIO (ORAL ) 6Admin Note: POLIO (ORAL ) 7Admin Note: POLIO (ORAL ) Medications LORazepam 0.5 mg oral tablet 1 tablet = 0.5 mg, By Mouth, Daily, PRN as needed for anxiety, at least 30 minutes prior to flight,# 6 tablet, 0 Refills, Soft Stop, 10/13/23 19:29:00 EDT, Tablet, [id number], Partial fill upon [...] flying Confirmed Active LFT elevation Confirmed Active PVCs (premature ventricular contractions) Confirmed Active Congenital pulmonary stenosis s/p percutaneous balloon valvuloplasty at age 7 yo Confirmed Stable 12/14/97 Active Diagnosis Diagnosis Type Effective Dates Health Status Clinical Service Informant LFT elevation Discharge Diagnosis 02/15/24 Overweight (BMI 25.0-29.9) Discharge Diagnosis 02/15/24 Congenital pulmonary stenosis Discharge Diagnosis 02/15/24 PVCs (premature ventricular contractions) Discharge Diagnosis 02/15/24 Vital Signs Most recent to oldest [Reference Range]: 1 2 Height 158.5 cm (02/15/24 11:14 AM) 158.5 cm (02/15/24 10:40 AM) Weight 66.2 kg (02/15/24 10:40 AM) Oxygen Saturation [94-100 %] 100 % (02/15/24 10:40 AM) Pulse Rate [55-90 bpm] 90 bpm (02/15/24 11:14 AM) Body Mass Index [18.5-24.99 kg/m2] 26.35 kg/m2 *H* (02/15/24 10:40 AM) Blood Pressure [90-138/55-84 mm Hg] 122/ 65mm Hg (02/15/24 11:14 AM) 109/74mm Hg (02/15/24 10:40 AM) Mode of Delivery (Oxygen) Room air (02/15/24 10:40 AM) Blood pressure sites Arm, left (02/15/24 11:14 AM) Arm, left (02/15/24 10:40 AM) Weight Obtained Via Standing scale (02/15/24 10:40 AM) Social History Social History Type Response Smoking Status Never smoker; Tobacc o user in household: No entered on: 11/24/16 Sex EKG study * Event Display: ECG 12-Lead Authored Date: Please click on pdf link to open report * Event Display: ECG 12-Lead Authored Date: Ventricular Rate: 81 BPM Atrial Rate: 81 BPM P-R Interval: 176 ms QRS Duration: 82 ms Q-T Interval: 376 ms QTC Calculation(Bazett): 436 ms P Clinton: 67 degrees R Clinton: 49 degrees T Clinton: 53 degrees Normal sinus rhythm Normal ECG When compared with ECG of 02-MAR-2018 19:36, No significant change was found Confirmed by REDDY PRETTY MD ([id number]) on 02/16/2024 8:13:57 AM Lucinda: REDDY PRETTY MD Note * Carly Quinn: PERFORM Event Display: Patient Education/Instruction Authored Date: Ambulatory Adult Visit Summary [facility] [address] [place] [address] Name: MYRIAM ALVARENGA : 1990?? Visit: 02/15/2024 10:35?? Ambulatory Visit Instructions ?? Your Care Team Primary Care Provider Charly Amanda MD? This Visit Provider Charly Amanda MD Your Diagnosis Encounter for general adult medical examination without abnormal findings Elevated LFTs Diarrhea Stomach upset Palpitations PE (physical exam), annual Vitals Signs Pulse Rate: 90 bpm Height: 158.5 cm Systolic Blood Pressure: 122 mm Hg Weight: 66.2 kg Diastolic Blood Pressure: 65 mm Hg Body Mass Index:??26.35 kg/m2??High Oxygen Saturation: 100 % Body surface area: 1.71 What to do next Follow-Up Appointments Follow up Appointment - Ordered?-- in 1 year, PE, 02/15/24 11:34:00 EDT Future Orders CBC - Routine, Once, 02/15/24 10:49:00 EDT, Order for Today, [facility], Blood?? IgA Level - Routine, Once, 02/15/24 10:49:00 EDT, Order for Today, [facility], Blood?? Tissue Transglutaminase Ab IgA - Routine, Once, 02/15/24 10:49:00 EDT, Order for Today, [facility], Blood?? Comprehensive Metabolic Panel - Routine, Once, 02/15/24 10:49:00 EDT, Order for Today, [facility], Blood?? Hepatitis B Core Ab - Routine, Once, 02/15/24 10:49:00 EDT, Order for Today, [facility], Blood?? Anti-HBS Quant (Hepatitis B Surface Antibody, Quant) - Routine, Once, 02/15/24 10:49:00 EDT, Order for Today, [facility], Blood?? Hepatitis B Surface Antigen - Routine, Once, 02/15/24 10:49:00 EDT, Order for Today, [facility], Blood?? Anti-HAV IgG (Hepatitis A IgG) - Routine, Once, 02/15/24 10:49:00 EDT, Order for Today, [facility], Blood?? Hepatitis C Ab - Routine, Once, 02/15/24 10:49:00 EDT, Order for Today, [facility], Blood?? Ferritin - Routine, Once, 02/15/24 10:49:00 EDT, Order for Today, [facility], Blood?? Iron + Iron Binding Capacity - Routine, Once, 02/15/24 10:49:00 EDT, Order for Today, [facility], Blood?? Sedimentation Rate (ESR) - Routine, Once, 02/15/24 10:50:00 EDT, Order for Today, [facility], Blood?? C Reactive Protein (CRP) - Routine, Once, 02/15/24 10:50:00 EDT, Order for Today, [facility], Blood?? Medications The list below reflects the information in our records and provided by you today along with any changes made during this visit. Please continue your medications until treatment is completed or stopped by your provider. If this is different from the information you have or there are other questions,please contact the prescribing provider. What How Much When Instructions Unchanged bifidobacterium-lactobacillus (Probiotic Formula) Oral Daily Unchanged Lorazepam (LORazepam 0.5 mg oral tablet) 1 tab(s) Oral Daily as needed for as needed for anxiety at least 30 minutes prior to flight ?? Unchanged Multivitamin (Multi Vitamin+) Test Performed Below is a partial list of the tests performed during your Visit. You may have had other tests and procedures not included in this list. Please discuss all test results with your provider. CBC?-- Results Pending -- Comprehensive Metabolic Panel?-- Results Pending -- CRP?-- Results Pending -- ESR?-- Results Pending -- Ferritin?-- Results Pending -- Hepatitis A IgG?-- Results Pending -- Hepatitis B Core Ab?-- Results Pending -- Hepatitis B Surface Antibody, Quant?-- Results Pending -- Hepatitis B Surface Antigen?-- Results Pending -- Hepatitis C Ab?-- Results Pending -- IgA Level?-- Results Pending -- Iron + Iron Binding Capacity?-- Results Pending -- Tissue Transglutaminase Ab IgA?-- Results Pending -- Medications and Immunizations Administered Medications Given During Visit No medications given during this visit.?? Allergies (NKA means No Known Allergies) NKA Common Emergency Awareness Tips IS IT A STROKE? Act FAST and Check for these signs: FACE Does the face look uneven? ARM Does one arm drift down? SPEECH Does their speech sound strange? TIME Call at any sign of stroke ?? Heart Attack Signs Chest discomfort: Most heart attacks involve discomfort in the center of the chest and lasts more than a few minutes, or goes away and comes back. It can feel like uncomfortable pressure, squeezing, fullness or pain. Discomfort in upper body: Symptoms can include pain or discomfort in one or both arms, back, neck, jaw or stomach. Shortness of breath: With or without discomfort. Other signs: Breaking out in a cold sweat, nausea, or lightheaded. Remember, MINUTES DO MATTER. If you experience any of these heart attack warning signs, call to get immediate medical attention! ?? Smoking can increase your chances of developing chronic health problems and can cause harmful effects to other family members in your house. If you smoke, you are strongly encouraged to quit. Please call [employer] at [phone] or [phone] ([phone]) or log in to [email or web address] for referrals to smoking cessation programs. ?? The National Suicide Prevention Hotline is available 26/01 if you or someone you know needs to find a reason to keep living. By calling 7-553-698-[employer] (2276) you'll be connected to a skilled, trained counselor at a crisis center in your area. [facility] [employer] Portal You can view and manage your care through the patient portal or by using a health care vicente of your choosing. [employer] is a website that allows you to securely view your medical information including your hospital discharge summary, office visit summaries, medications and follow-up visits. You can also request appointments, renew medications, and request access to your medical information using a health care vicente of your choosing, or just ask a question. You can enroll at [email or web address] or register during your next office visit. [facility], in keeping with [facility] guidance, no longer requires face masks for staff, patientsor visitors in most situations. Similiar to time spent indoors at other locations, there is the chance that you were exposed to repiratory viruses during your time with us (such as flu or COVID-19). If you develop symptoms concerning for a viral respiratory infection, please seek testing (and treatment if indicated) from your medical provider or home test kit. ?? Disclaimer: The information provided is of a general nature and is intended to be used in conjunction with the recommendations and advice of your health care practitioner. Every effort has been made to ensure that the information provided is accurate and complete at the time it is provided to you however, as your needs change, or, as new information becomes available, different or additional instructions may be required. ?? If you have questions, please consult with your primary care provider or pharmacist, as appropriate. This information is not intended to serve as substitution for assessment and evaluation by a qualified health care provider. If you do not have a primary care provider, you may find a [facility] [employer] provider by calling [employer] at [phone]. Patient Care team information Care Team Personnel Name: Charly Amanda MD Position: S Physician - Primary Care Member Role: PCP Address: Address: [address] [place] [address] Adult [place] [address]- Care Team Related Persons Name: NILESH YUN Address: home [address] [place] [id number] Name: SAE YUN Address: [address] [address]
[2024-03-08 04:55] LABS: Appearance Urine Clear; Color Urine Dark Yellow; Glucose Urine UA Negative (Negative); Leukocyte Esterase Urine Negative (Negative); Nitrite Urine Negative (Negative); Urine Blood Negative (Negative); Urine Ketones Trace mg/dL (Negative); Urine Protein Negative (Neg-Trace)
[2024-03-08 06:36] VITALS: BP 129/68; PULSE 102; RESP 16; TEMP 37.1; O2SAT 98
== END 2024-03-08 06:36 | disposition home or self-care (01) ==
PROVIDERS: Emergency Provider Internal Medicine; PCP Internal Medicine Sports Medicine
DX: K80.50 Calculus of bile duct without cholangitis or cholecystitis without obstruction (principal); K59.00 Constipation, unspecified; R00.0 Tachycardia, unspecified; Z79.899 Other long term (current) drug therapy
CPT/HCPCS: 36415; 74018; 76705; 80053; 81003; 83690; 85027; 93005; 96360; 99284; 99285

== ENCOUNTER 2024-03-17 10:22 | Outpatient (AMB) | payer OTHER, SELFPAY ==
--- NOTE | 2024-03-17 10:38 | MHC.OFFVIS ---
Vital Signs 03/17/24 10:39 Height 5 ft 2 in Weight 144 lb BMI 26.3 BP 126/76 Blood Pressure Location Rt brachial Position Sitting Pulse 90 Intake Visit Reasons: bilary colic Intake Note: This patient presents for biliary colic assessment. Pt c/o; reports last gallbladder attack was about 1 week ago, reports postprandial nausea, reports diarrhea. KUB X-ray:03/08/2024 Abd US: [id number] Marketing Trainee Required: No Accompanied by: Other Relationship Allergies No Known Allergies [No Known Allergies*] Allergy (Unverified 03/17/24 10:46) Medication List - Last Reconciled 03/17/24 by Eulalio Gee MD No Known Home Meds HPI HPI bilary colic: Details: [age] year old female referred by the ER for a gallbladder polyp. She went to the ER last 03/08/2024 because of upper abdominal pain. She says that this seemed to be mostly on the right but states that she had also felt this on the left side She had an ultrasound done showing a small gallbladder polyp measuring 4 mm in size. She was therefore referred to me She has had no further episodes since then She does admit to a long history of what she states as ?GI issues?. She says that she was since she was a child, she has had frequent diarrhea and loose stools and vague abdominal pain or discomfort. She describes chronic nausea as well. She says she previously had an EGD when she was seen by a straddle truck driver when she was young. [facility] Medical History (Updated 03/17/24 @ 11:04 by Eulalio Gee MD) Gallbladder polyp Surgical History (Updated 03/17/24 @ 10:47 by TABBY Resendiz) No pertinent past surgical history Social History (Updated 03/17/24 @ 10:47 by TABBY Resendiz) Unable to assess alcohol history related to: Unknown Patient Tobacco Use Status: Tobacco use Unknown Review of Systems Const Denies chills and Denies fever(s) Card Denies chest pain, Denies dyspnea and Denies dyspnea on exertion Resp Denies cough, Denies dyspnea and Denies dyspnea on exertion GI Denies hematochezia and Denies change in bowel habits Denies hematuria Musc Denies back pain and Denies limited range of motion Neuro Denies focal weakness and Denies convulsions Psych Denies depression and Denies mood swings Physical Exam Vital Signs: Last Vital Signs Pulse 90 03/17/24 10:39 BP 126/76 03/17/24 10:39 BMI result Body Mass Index 26.3 Const General: comfortable and no acute distress Orientation/consciousness: patient oriented x3 Neck Neck: Yes no lymphadenopathy Resp Auscultation: clear to auscultation bilaterally Cardio Rhythm: regular rhythm GI Palpation (GI): Soft to palpation, nontender and no guarding Neuro General: patient oriented x3 Assessment & Plan Assessment & Plan (1) Gallbladder polyp: Code(s): K82.4 - Cholesterolosis of gallbladder Category: Medical Plan: She has a small gallbladder polyp as described above. I explained to her that surgical intervention is not indicated at this time. However, I will repeat her ultrasound in about 6 months. I would like to see her again in the office after that She does have chronic GI issues. I had recommended for her to discuss this with her primary care physician as she may need to be re-evaluated by her straddle truck driver. She seems to understand the plan well and is comfortable with this. Coding Level of Care Code New Pt Level 3 (59704) Diagnoses Gallbladder polyp K82.4
[2024-03-17 10:39] VITALS: BP 126/76; PULSE 90; BMI 26.3
== END 2024-03-17 11:06 | disposition home or self-care (01) ==
PROVIDERS: PCP Internal Medicine Sports Medicine; Visit Provider Surgery
DX: K82.4 Cholesterolosis of gallbladder (principal)
CPT/HCPCS: 99203

== ENCOUNTER → 2024-03-17 10:22 | Outpatient (BNVA) | payer OTHER, SELFPAY | PROVIDERS: PCP Internal Medicine Sports Medicine; Visit Provider Surgery ==

== ENCOUNTER 2024-09-05 07:52 | Outpatient (REF) | payer OTHER, SELFPAY ==
--- NOTE | ~2024-09-05 | US_ITS ---
CLINICAL HISTORY: K82.4 - Cholesterolosis of gallbladder US abdomen limited Comparison: 03/08/2024 Findings: Liver homogeneous without focal abnormality. Right lobe 16.6 cm length. Visualized pancreas unremarkable. A few small gallbladder wall polyps noted. No gallstones or wall thickening. Common duct 2.8 mm diameter. No ultrasonographic Lambert sign. Right kidney normal, 11.2 cm in length. Impression: Small gallbladder wall polyps noted This document has been electronically signed by: Hardy Little MD on 09/05/2024 21:48:27
== END 2024-09-05 07:53 | disposition home or self-care (01) ==
LOC: HO.US 07:52
PROVIDERS: PCP Internal Medicine Sports Medicine; Visit Provider Surgery
DX: K82.4 Cholesterolosis of gallbladder (principal)
CPT/HCPCS: 76705

== ENCOUNTER → 2024-09-05 07:56 | Outpatient (BNV) | payer OTHER, SELFPAY | PROVIDERS: PCP Internal Medicine Sports Medicine; Visit Provider Radiology Diagnostic Radiology | DX: K82.4 Cholesterolosis of gallbladder (principal) | CPT/HCPCS: 76705 ==